=== PATIENT | male | born 1955 | race Caucasian/White ===

== ENCOUNTER 2016-11-10 22:50 | Inpatient (IN) | payer OTHER ==
[2016-11-10] MEDS ORDERED: LIDOCAINE 2% UROJECT 10 ML ONE (23:49)
[2016-11-11 00:24] LABS: URINE BILIRUBIN NEGATIVE (NEGATIVE); URINE BLOOD NEGATIVE (NEGATIVE); URINE GLUCOSE (UA) NEGATIVE (NEGATIVE); URINE LEUKOCYTE ESTERASE NEGATIVE (NEGATIVE); URINE NITRITE NEGATIVE (NEGATIVE); URINE PROTEIN NEGATIVE (NEGATIVE); URINE UROBILINOGEN NORMAL (0-1 mg/dl)
[2016-11-11 00:25] LABS: URINE APPEARANCE CLEAR; URINE COLOR YELLOW
[2016-11-11] MEDS ORDERED: OXYCODONE/ACETAMINOPHEN 5/325 MG TABLET ONE (00:53)
[2016-11-11 04:30] VITALS: BMI 23.9
[2016-11-11] MEDS ORDERED: BISACODYL 10 MG SUP PR PRN (04:47)
[2016-11-11] MEDS ORDERED: MENTHOL/CETYLPYRD 1 EACH LOZENGE PO PRN (04:47)
[2016-11-11] MEDS ORDERED: BLISTEX LIPSTICK 1 EACH TP PRN (04:47)
[2016-11-11] MEDS ORDERED: BISACODYL 5 MG TABLET.EC PO PRN (04:47)
[2016-11-11] MEDS ORDERED: SODIUM CHLORIDE 0.9% 100 ML IV PRN (04:47)
[2016-11-11] MEDS ORDERED: MAGNESIUM HYDROXIDE 30 ML UDCUP PO PRN (04:47)
[2016-11-11] MEDS ORDERED: DIPHENHYDRAMINE HCL 25 MG CAPSULE PO PRN (05:33)
[2016-11-11] MEDS ORDERED: ALBUTEROL NEB 2.5 MG/3 ML VIAL.NEB NEB PRN (05:43)
[2016-11-11] MEDS: OXYCODONE/ACETAMINOPHEN 5/325 MG TABLET PO PRN ×4 (06:25→20:38)
--- NOTE | 2016-11-11 06:29 | RAD ---
EXAMINATION:HIP - LEFT 2 VW + AP PELVIS INDICATION:Left hip pain. COMPARISON: Prior exam dated 12/25/2011. TECHNIQUE:An AP pelvis and 2 views of the hip were obtained. A left total hip arthroplasty is noted. The femoral component is well seated within the acetabular component. There is increased lucency adjacent to the acetabular component. This is more pronounced in comparison to the prior examination. The femoral component appears well-seated. Heterotopic ossification adjacent to the trochanters are again noted and similar to the prior exam. Right total hip arthroplasty is similar to the prior study. No acute pelvic fracture is identified. IMPRESSION: Evidence of loosening of the acetabular component left total hip arthroplasty. No acute fracture or dislocation is identified.
--- NOTE | 2016-11-11 06:37 | CT ---
Examination: Noncontrast CT scan of the lumbar spine. Clinical indication: Sudden onset of large and weakness. Left hip pain. Comparisons: Radiographs dated 01/23/2008. Technique: A [employer]orap [address] scanner was utilized. Axial images were acquired from the T12 vertebra to S2. Stacked 3 mm axial images were reviewed. Sagittal and coronal reconstructed images were acquired and reviewed as well. Additional 3 mm reconstructed images were acquired with additional post processing angled to the plane of the intervertebral discs of the lumbar spine. Findings: Sagittal reconstructed images reveal: There is normal alignment of the lumbar vertebral bodies. The vertebral body heights are maintained. There is intervertebral disc space narrowing greatest at L4-5 and L5-S1. Disc osteophyte formation is seen at these segments. Mild/moderate facet arthropathy involves the lower lumbar segments. After chronic plaquing the abdominal aorta is noted. Axial images reveal: At T12-L1: Minimal disc bulge with no secondary stenosis. At L1-L2: There is a minimal disc bulge with mild facet arthropathy. No significant stenosis. At L2-L3: There is a mild disc bulge at this segment with facet and ligament flavum hypertrophy contributing to mild central canal narrowing. There is no significant neural encroachment. At L3-L4: There is a diffuse disc bulge at this segment with facet and ligament flavum hypertrophy and mild central canal narrowing. No neural encroachment. At L4-L5: There is a broad-based disc osteophyte at this segment with facet and ligament flavum hypertrophy contributing to moderate central stenosis. There is mild to moderate bilateral neural encroachment. At L5-S1: There is a diffuse disc osteophyte. At this segment with moderate facet arthropathy. This causes severe left and moderate to severe right neural encroachment. There is abutment of the origin the S1 nerve root at this segment as well. Paraspinous soft tissues: Atherosclerotic plaquing of the aorta and iliac vessels are noted.. Minimal right hydroureter is noted with no evidence of perinephric stranding. IMPRESSION: Multilevel degenerative disc disease coupled with facet and ligament flavum hypertrophy contributing to the followin. Severe left and moderate to severe right neural encroachment at L5-S1. 2. Mild central stenosis and mild to moderate bilateral neural encroachment at L4-5. 3. Mild central stenosis at L2-3 and L3-4 with no neural encroachment. 4. Prominent proximal right hydroureter. No radha changes of pyelonephritis or hydronephrosis. Findings were communicated by [facility] to the emergency department at: 12:02 AM 11/11/2016
[2016-11-11] MEDS: FLUTICASONE PROP 220 MCG 120 PUFF/INH INHALER IH SCH ×2 (06:58→17:43)
[2016-11-11 07:40] LABS: ABSOLUTE NEUTROPHIL COUNT 3.3 K/mm3 (1.8-7.7); BASO % 0.5 % (0.2-1.0); EOS # 0.1 (0.0-0.5); EOS % 1.6 % (0.9-2.9); HEMATOCRIT 40.1 % (32.0-52.0); HEMOGLOBIN 13.3 gm/l (14.0-18.0); IMM NEUT% 0.7 % (0-1); LYMPH # 1.6 (1.0-4.8); LYMPH % 28.7 % (15-45); MEAN CELL VOLUME 93.3 fl (80.0-94.0); MEAN CORPUSCULAR HEMOGLOBIN 30.9 pg (27.0-31.0); MEAN CORPUSCULAR HGB CONC 33.2 g/dl (33.0-37.0); MEAN PLATELET VOLUME 13.2 fl (7.4-10.4); MONO # 0.5 (0.0-0.8); MONO % 8.2 % (4-12); NEUT % 60.3 % (43-75); RED CELL DISTRIBUTION WIDTH 13.8 % (11.5-14.5)
[2016-11-11 07:48] LABS: ALB/GLOB RATIO 1.4 (>1.0); ALBUMIN 3.8 gm/dL (3.5-5.7); CALCIUM 9.1 mg/dL (8.6-10.3); PHENYTOIN (DILANTIN) 31.7 ug/ml (10-20)
[2016-11-11] MEDS: POLYETHYLENE GLYCOL 3350 17 G POWD.SUSP PO SCH (08:47)
[2016-11-11] MEDS: ASPIRIN (UNCOATED) 325 MG TABLET PO SCH (08:48)
[2016-11-11] MEDS: FOLIC ACID 1 MG TABLET PO SCH (08:48)
[2016-11-11] MEDS: CYCLOBENZAPRINE HCL 10 MG TABLET PO SCH ×2 (08:49→20:38)
[2016-11-11] MEDS: AMLODIPINE BESYLATE 5 MG TABLET PO SCH (08:49)
[2016-11-11] MEDS: PHENOBARBITAL 32.4 MG PO SCH ×2 (08:49→20:38)
[2016-11-11] MEDS: DOCUSATE SODIUM 100 MG CAPSULE PO SCH ×2 (08:49→20:38)
[2016-11-11 08:59] LABS: PLATELET COUNT 95 K/mm3 (130-400)
[2016-11-11] MEDS ORDERED: ENOXAPARIN SODIUM 40 MG/0.4 ML SYRINGE SUB-Q SCH (09:00)
[2016-11-11] MEDS ORDERED: PHENYTOIN SODIUM 100 MG PO SCH (09:00)
--- NOTE | 2016-11-11 14:36 | HP ---
NIMISHA BORJA [id number] DATE OF ADMISSION: 11/11/2016 CHIEF COMPLAINT: Fall, with inability to ambulate and potential need for placement. HISTORY OF PRESENT ILLNESS: The patient is a 61-year-old male. When asked about when his problems started, he reports his problems started in 1995. More recently he has had multiple falls and ER visits. He has had a number of hip surgeries and has had recurrent dislocation and exostosis formation. He has been seen at [facility], but [facility] does not have any further treatment that can be offered to him. He presented to the ER complaining of left hip and lower back pain after a fall at 8:00 P.M. on 11/10/2016 after his knees gave-out. In the emergency department he was given Percocet, but he was unable or unwilling to walk, and so the Hospitalist Service was requested to admit to facilitate for evaluation and potential placement. He reports his back "let go" and he fell on his left hip. He denies loss of consciousness. PAST MEDICAL HISTORY: 1. Review of old charts indicates he has had multiple falls, with a previous request for a wheelchair from Dr. Epstein. 2. He has had seizures since at least 1977 according to his report. 3. He has had a head injury dating to two concussions in 1968, and seizures that developed in 1977. 4. He has had a diagnosis of personality disorder. 5. Previously failed chronic pain treatment. 6. History of drug abuse. 7. History of asthma. 8. Chronic neck, back and hip pains. 9. Previous history of avascular necrosis of bilateral hips. 10. History of hypertension. 11. 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 12. Previous history of urinary retention, and he actually received a Gifford here in the ER today. 13. He has had a history of chest pains and had a nuclear stress test in October of 2016, with a normal ejection fraction. 14. The patient had an ankle fracture in October of 2016. PAST SURGICAL HISTORY: Includes: 1. Cholecystectomy. 2. Foot surgery, with what sounds like a neuroma removal at two times. 3. He has had cervical fusion and reports having numerous bilateral hip surgeries. ALLERGIES: Listed as morphine, penicillin and soma. MEDICATIONS: He takes: 1. Amlodipine 10 mg daily. 2. Aspirin 325 mg daily. 3. Calcium with vitamin D-3 by mouth twice a day. 4. Cyclobenzaprine 20 mg by mouth twice a day. 5. Diphenhydramine 25 mg by mouth every four hours as needed allergies. 6. Flovent 220 two puffs inhaled every 12 hours. 7. Folic acid 2 mg by mouth daily. 8. Phenobarbital 129 mg by mouth twice a day. 9. Phenytoin 200 mg by mouth twice a day, taken from Dr. Epstein's outpatient record. SOCIAL HISTORY: He last worked 20 years ago. 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 He is . He has two kids and five grandkids. He smokes marijuana. Occasional cigar. Occasional alcohol. He lives at [place] in a [facility], no others there. FAMILY HISTORY: Father at age 87. Mom at age 85. REVIEW OF SYSTEMS: HEENT - eyes, he reports he needs glasses and has cataracts. Ears are okay, although he has tinnitus on the right and reports that his ears were frequently lanced as a child. Nose has been okay, although it has been fractured four times. Mouth is okay. He has dentures. Neck - neck is fused, and he has problems because of this. He has headaches. Pulmonary - his breathing, he states his asthma is okay, he uses nebulizers. Heart - has been okay. GI - stomach is okay. No vomiting and no diarrhea. - he has had urinary retention and he got a catheter in his bladder, placed in the ER. Outside records indicate a history of atonic bladder. Skin - no skin complaints. Musculoskeletal - he reports a history of abdominal muscle tear associated with a fall of 32 feet. He reports his last seizure was last week. He uses a four-wheeled walker and has a two-wheeled walker as well. He has chronic hip pain. Neurologic - he denies history of stroke. PHYSICAL EXAMINATION: GENERAL: Nontoxic male lying in bed, questionable historian. VITAL SIGNS: Blood pressure 117/79. Pulse is 60. Respirations 18. Saturation 95% on room air. HEENT: Head is normocephalic, atraumatic. Eyes are unremarkable. Ears, cerumen noted. Nose is unremarkable. Edentulous mouth. NECK: Without significant crepitance noted. LUNGS: Clear to auscultation. HEART: Regular rate and rhythm, without murmur. ABDOMEN: Soft, nontender and nondistended. Bowel sounds are normal. No hepatosplenomegaly. Gifford is in. GENITOURINARY: Exam is otherwise grossly unremarkable. EXTREMITIES: Legs, no cyanosis, clubbing or edema. Arms, grossly unremarkable. NEUROLOGIC: Patient's cranial nerves are intact. Speech is clear. He is lying in bed. Fair historian. LABS: Urinalysis is normal. IMAGING: None. ASSESSMENT/PLAN: 1. Inability to walk and care for self. Plan social work, PT and OT consult, and appreciate their input regarding consideration for placement or other assistance. 2. History of seizure disorder. Will check labs, including a phenytoin level. 3. History of heterotopic bone formation. Appreciate PT and OT evaluation, but ER reports that [facility] was contacted and that they do not have any treatments to offer him. 4. History of ankle fracture, not otherwise addressed. 5. History of asthma. Will continue on inhalers. 6. Hypertension. Will continue medications. 7. Venous thrombosis prophylaxis. Anticipate use of Lovenox. cc: Dr. Christoph Epstein [facility]
[2016-11-11] MEDS ORDERED: CELECOXIB 100 MG CAPSULE PO SCH (15:00)
[2016-11-11] MEDS ORDERED: CELECOXIB 200 MG CAPSULE ONE (15:04)
[2016-11-11] MEDS: CELECOXIB 200 MG CAPSULE PO SCH (15:38)
[2016-11-12] MEDS: OXYCODONE/ACETAMINOPHEN 5/325 MG TABLET PO PRN ×5 (02:42→23:33)
[2016-11-12] MEDS: FLUTICASONE PROP 220 MCG 120 PUFF/INH INHALER IH SCH ×2 (05:23→17:44)
[2016-11-12] MEDS: PHENOBARBITAL 32.4 MG PO SCH ×2 (08:46→21:03)
[2016-11-12] MEDS: POLYETHYLENE GLYCOL 3350 17 G POWD.SUSP PO SCH (08:46)
[2016-11-12] MEDS: DOCUSATE SODIUM 100 MG CAPSULE PO SCH ×2 (08:47→21:03)
[2016-11-12] MEDS: AMLODIPINE BESYLATE 5 MG TABLET PO SCH (08:47)
[2016-11-12] MEDS: ASPIRIN (UNCOATED) 325 MG TABLET PO SCH (08:47)
[2016-11-12] MEDS: FOLIC ACID 1 MG TABLET PO SCH (08:47)
[2016-11-12] MEDS: CYCLOBENZAPRINE HCL 10 MG TABLET PO SCH ×2 (08:47→21:03)
[2016-11-12] MEDS: CELECOXIB 200 MG CAPSULE PO SCH (08:49)
--- NOTE | 2016-11-12 11:06 | PDOC43 ---
- Subjective Chief Complaint: Falls Patient reports ongoing difficulty with L hip pain, difficulty raising L leg since falling on L leg. Xray showed the heterotopic bone formation, but also suggested possible loosening of acetabular component. Pt focused on the heterotopic bone. Pt's brother visiting. They are both upset about several things today. They report that they have requested testing for cobalt due to seeing ads on TV and that they feel he could be missing out on joining the class action suit. They are upset that Dr Epstein has not shown them the Xrays, and they indicate that Dr Epstein has not pursued their concerns. Pt has been to [facility] and [facility], but doesn't wish to go there. - Objective Vital Signs Temperature 98.3 F 11/12/16 07:37 Pulse Rate 87 11/12/16 07:37 Respiratory Rate 15 11/12/16 07:37 Blood Pressure 117/76 11/12/16 07:37 O2 Saturation by Pulse Oximetry 95 11/12/16 07:37 Oxygen Delivery Method Room Air Oxygen Flow Rate 0 Vital Signs Last 12 Hours Temp Pulse Resp BP Pulse Ox 11/12/16 07:37 98.3 F 87 15 117/76 95 11/12/16 02:00 98.3 F 91 20 110/85 100 Intake and Output 11/10/16 11/11/16 11/12/16 23:59 23:59 23:59 Intake Total 1350 650 Output Total 1050 450 Balance 300 200 General: Other (pt reports unable to use left leg.) HEENT: Atraumatic Lungs: Clear to Auscultation Bilaterally Cardiovascular: Regular Rate and Rhythm Abdomen: Soft, Hypoactive Bowel Sounds, Other Extremities: No Cyanosis, No Edema Skin: Normal Color Neurological: Normal Speech, Other (Patient seems more alert, more awake this am.) Laboratory 11/11/16 07:00 11/11/16 07:00 11/12/16 05:30 Phenytoin 22.8 H Current Medications: Current meds reviewed in EMR. Active Medications Albuterol Sulfate (Ventolin Inhalation Solution (Dose)) 2.5 mg NEB Q4H PRN PRN Reason: Wheezing Amlodipine Besylate (Norvasc) 10 mg PO DAILY [facility] Last Admin: 11/12/16 08:47 Dose: 10 mg Aspirin (Aspirin (Uncoated)) 325 mg PO DAILY [facility] Last Admin: 11/12/16 08:47 Dose: 325 mg Benzocaine/Menthol (Cepacol) 1 each PO PRN PRN PRN Reason: Sore Throat Bisacodyl (Dulcolax) 10 mg [place] DAILY PRN PRN Reason: Constipation Bisacodyl (Dulcolax) 5 mg PO DAILY PRN PRN Reason: Constipation Celecoxib (Celebrex) 200 mg PO DAILY [facility] Last Admin: 11/12/16 08:49 Dose: Not Given Cyclobenzaprine HCl (Flexeril) 20 mg PO BID [facility] Last Admin: 11/12/16 08:47 Dose: 20 mg Diphenhydramine HCl (Benadryl) 25 mg PO Q4H PRN PRN Reason: allergy symptoms Docusate Sodium (Colace) 100 mg PO BID [facility] Last Admin: 11/12/16 08:47 Dose: 100 mg Enoxaparin Sodium (Lovenox) 40 mg SUB-Q Q24H [facility] Last Admin: 11/11/16 08:51 Dose: 40 mg Fluticasone Propionate (Flovent Hfa 220 Mcg) 2 puff IH Q12H [facility] Last Admin: 11/12/16 05:23 Dose: 2 puffs Folic Acid (Folic Acid) 2 mg PO DAILY [facility] Last Admin: 11/12/16 08:47 Dose: 2 mg Sodium Chloride (Sodium Chloride 0.9%) 100 mls @ 25 mls/hr IV PRN PRN PRN Reason: Flush Magnesium Hydroxide (Milk Of Magnesia) 30 ml PO DAILY PRN PRN Reason: Constipation Oxycodone/Acetaminophen (Percocet 5/325) 0.5 - 1 tab PO Q4H PRN PRN Reason: Pain Last Admin: 11/12/16 07:12 Dose: 1 tab Petrolatum/Paraffin/Mineral Oil (Blistex) 1 each TP PRN PRN PRN Reason: Dry and/or chapped lips Phenobarbital (Phenobarbital (1/2 Grain)) 129.6 mg PO BID [facility] Last Admin: 11/12/16 08:46 Dose: 129.6 mg Phenytoin Sodium (Dilantin) 200 mg PO BID [facility] Last Admin: 11/11/16 10:11 Dose: Not Given Polyethylene Glycol/Electrolytes (Miralax) 17 g PO DAILY [facility] Last Admin: 11/12/16 08:46 Dose: 17 g Sodium Chloride (Normal Saline 10ml Flush) 10 - 50 ml IV PRN PRN PRN Reason: IV Flush Sodium Chloride (Normal Saline 10ml Flush) 10 ml IV Q8HR [facility] Last Admin: 11/12/16 08:49 Dose: Not Given - Problems: Assessment/Plan (1) Fall Qualifiers: Encounter type: initial encounter Qualifier Code: (W19.XXXA) Unspecified fall, initial encounter Status: Acute Assessment/Plan: Suspect related to dilantin toxicity. Planning on PT/OT eval. Consider for return home vs SNF placement, but SNF seems more likely. Pt with possible loosening - Dr Pruitt rec'd outpt follow up (2) HTN (hypertension) Qualifiers: Hypertension type: essential hypertension Qualifier Code: (I10) Essential (primary) hypertension Status: Chronic Assessment/Plan: Appears stable (3) Hip pain, bilateral Status: Chronic Assessment/Plan: Appreciate ortho input, anticipate outpt follow up. Xray printed out, given to patient at his request. Pt reports increased L hip pain attributed to fall at home. Question of acetabular loosening. (4) Seizure disorder Status: Chronic Assessment/Plan: On dilantin, plan revise dosing due to toxicity. VTE Prophylaxis: enoxoparin Disposition: determining SNF vs home. Appreciate PT/OT input - they report not safe, would recommend SNF
[2016-11-13] MEDS: OXYCODONE/ACETAMINOPHEN 5/325 MG TABLET PO PRN ×2 (06:22→13:39)
[2016-11-13] MEDS: FLUTICASONE PROP 220 MCG 120 PUFF/INH INHALER IH SCH (06:24)
[2016-11-13 07:47] VITALS: BP 120/86
--- NOTE | 2016-11-13 08:52 | PDOC43 ---
- Subjective Chief Complaint: Falls Patient reports doing ok, but reports frustrated about inability to use L leg. Gifford still in. - Objective Vital Signs Temperature 97.6 F 11/13/16 07:46 Pulse Rate 99 11/13/16 07:46 Respiratory Rate 20 11/13/16 07:46 Blood Pressure 120/86 11/13/16 07:46 O2 Saturation by Pulse Oximetry 94 11/13/16 07:46 Oxygen Delivery Method Room Air Oxygen Flow Rate 0 Vital Signs Last 12 Hours Temp Pulse Resp BP Pulse Ox 11/13/16 07:46 97.6 F 99 20 120/86 94 11/13/16 02:07 98.2 F 100 18 138/112 97 11/13/16 01:00 18 Intake and Output 11/11/16 11/12/16 11/13/16 23:59 23:59 23:59 Intake Total 1350 1390 500 Output Total 1050 1050 650 Balance 300 340 -150 Intake & Output 11/12/16 11/13/16 11/13/16 23:59 07:59 15:59 Intake Total 740 500 Output Total 600 650 Balance 140 -150 Weight 65 kg Intake: PO Intake 740 500 Output: Gifford Output 600 650 General: Alert, Cooperative, Mild Distress (concerned about getting medications at SNF) Lungs: Clear to Auscultation Bilaterally Cardiovascular: Regular Rate and Rhythm Abdomen: Soft, Normal Bowel Sounds, Non-Distended Extremities: Other (difficulty raising or moving L leg), No Edema Neurological: Other (sl atypical affect, focused on medications and illnesses) Laboratory 11/11/16 07:00 11/11/16 07:00 Current Medications: Current meds reviewed in EMR. Active Medications Albuterol Sulfate (Ventolin Inhalation Solution (Dose)) 2.5 mg NEB Q4H PRN PRN Reason: Wheezing Last Admin: 11/12/16 19:54 Dose: 2.5 mg Amlodipine Besylate (Norvasc) 10 mg PO DAILY [facility] Last Admin: 11/12/16 08:47 Dose: 10 mg Aspirin (Aspirin (Uncoated)) 325 mg PO DAILY [facility] Last Admin: 11/12/16 08:47 Dose: 325 mg Benzocaine/Menthol (Cepacol) 1 each PO PRN PRN PRN Reason: Sore Throat Bisacodyl (Dulcolax) 10 mg [place] DAILY PRN PRN Reason: Constipation Bisacodyl (Dulcolax) 5 mg PO DAILY PRN PRN Reason: Constipation Celecoxib (Celebrex) 200 mg PO DAILY [facility] Last Admin: 11/12/16 08:49 Dose: Not Given Cyclobenzaprine HCl (Flexeril) 20 mg PO BID [facility] Last Admin: 11/12/16 21:03 Dose: 20 mg Diphenhydramine HCl (Benadryl) 25 mg PO Q4H PRN PRN Reason: allergy symptoms Docusate Sodium (Colace) 100 mg PO BID [facility] Last Admin: 11/12/16 21:03 Dose: 100 mg Enoxaparin Sodium (Lovenox) 40 mg SUB-Q Q24H [facility] Last Admin: 11/11/16 08:51 Dose: 40 mg Fluticasone Propionate (Flovent Hfa 220 Mcg) 2 puff IH Q12H [facility] Last Admin: 11/13/16 06:24 Dose: 2 puffs Folic Acid (Folic Acid) 2 mg PO DAILY [facility] Last Admin: 11/12/16 08:47 Dose: 2 mg Sodium Chloride (Sodium Chloride 0.9%) 100 mls @ 25 mls/hr IV PRN PRN PRN Reason: Flush Magnesium Hydroxide (Milk Of Magnesia) 30 ml PO DAILY PRN PRN Reason: Constipation Oxycodone/Acetaminophen (Percocet 5/325) 0.5 - 1 tab PO Q4H PRN PRN Reason: Pain Last Admin: 11/13/16 06:22 Dose: 1 tab Petrolatum/Paraffin/Mineral Oil (Blistex) 1 each TP PRN PRN PRN Reason: Dry and/or chapped lips Phenobarbital (Phenobarbital (1/2 Grain)) 129.6 mg PO BID [facility] Last Admin: 11/12/16 21:03 Dose: 129.6 mg Phenytoin Sodium (Dilantin) 200 mg PO BID [facility] Last Admin: 11/11/16 10:11 Dose: Not Given Polyethylene Glycol/Electrolytes (Miralax) 17 g PO DAILY [facility] Last Admin: 11/12/16 08:46 Dose: 17 g Sodium Chloride (Normal Saline 10ml Flush) 10 - 50 ml IV PRN PRN PRN Reason: IV Flush Sodium Chloride (Normal Saline 10ml Flush) 10 ml IV Q8HR [facility] Last Admin: 11/13/16 02:11 Dose: Not Given - Problems: Assessment/Plan (1) Fall Qualifiers: Encounter type: initial encounter Qualifier Code: (W19.XXXA) Unspecified fall, initial encounter Status: Acute Assessment/Plan: Suspect related to dilantin toxicity. Planning on PT/OT eval. Consider for SNF placement Pt with possible loosening - asked [facility] to see to facilitate follow up. (2) HTN (hypertension) Qualifiers: Hypertension type: essential hypertension Qualifier Code: (I10) Essential (primary) hypertension Status: Chronic Assessment/Plan: Appears stable (3) Hip pain, bilateral Status: Chronic Assessment/Plan: Bilat pain, but seems left has worsened since fall. Appreciate ortho input, anticipate outpt follow up. Xray printed out, given to patient at his request. Pt reports increased L hip pain attributed to last fall at home. Question of acetabular loosening - ortho follow up appreciated. Pt with multiple prior procedures, revisions, and even radiation for heterotopic bone formation at [facility] Appreciate ortho care (4) Seizure disorder Status: Chronic Assessment/Plan: On dilantin, Revised dosing due to toxicity. Seems clearer after dose revised. VTE Prophylaxis: enoxoparin Disposition: recommend SNF, may go later today
[2016-11-13] MEDS: CELECOXIB 200 MG CAPSULE PO SCH (09:05)
[2016-11-13] MEDS: POLYETHYLENE GLYCOL 3350 17 G POWD.SUSP PO SCH (09:10)
[2016-11-13] MEDS: CYCLOBENZAPRINE HCL 10 MG TABLET PO SCH (09:11)
[2016-11-13] MEDS: FOLIC ACID 1 MG TABLET PO SCH (09:12)
[2016-11-13] MEDS: AMLODIPINE BESYLATE 5 MG TABLET PO SCH (09:12)
[2016-11-13] MEDS: ASPIRIN (UNCOATED) 325 MG TABLET PO SCH (09:12)
[2016-11-13] MEDS: DOCUSATE SODIUM 100 MG CAPSULE PO SCH (09:12)
[2016-11-13] MEDS: PHENOBARBITAL 32.4 MG PO SCH (09:13)
[2016-11-13] MEDS ORDERED: PHENYTOIN SODIUM 100 MG PO SCH ×2 (09:45→20:00)
--- NOTE | 2016-11-13 15:10 | DS ---
BERENICE BORJA [id number] DATE OF ADMISSION: November 11, 2016 DATE OF DISCHARGE: November 13, 2016 DISCHARGE DIAGNOSES: Are: 1. Fall with inability to ambulate. 2. Concern for a loosened prosthesis left hip. 3. Dilantin toxicity. 4. Seizure disorder. 5. History of head injury. 6. History of drug abuse and failed chronic pain treatment. 7. Previous history of avascular necrosis of hips. 8. Heterotopic bone formation in hips. 9. Urinary retention with Gifford placement during this hospitalization. 10. Ankle fracture, October,. 11. L5/S1 neural encroachment seen on CT. 12. Patient concerned for cobalt toxicity. REASON FOR ADMISSION: The patient is a 61-year-old male who is a poor historian. He has had multiple falls and emergency room visits recently and has also had a long history of hip surgeries and revisions. Last seen at [facility] and had even undergone some type of radiation for heterotopic bone formation. He presented to the emergency room regarding left hip and lower back pain after a fall at 8:00 p.m. on November 10, 2016 after his knees gave out. In the emergency room he was given Percocet but was unable to walk, so hospitalist service was requested to admit to facilitate evaluation and consideration for placement. He denied loss of consciousness. His admission labs showed a white blood cell count of 5.5, hemoglobin 13.3, platelet count 95, sodium 133, potassium 4.3, chloride 97, CO2 27, BUN 10, creatinine 0.7, glucose 73, AST 15, ALT 7, alkaline phosphatase 122, TSH 0.63, albumin 3.8, globulin 2.8. urinalysis was unremarkable. Dilantin level was 31.7 on November 11, 2016 and a followup one on November 12, 2016 was 22.8. Imaging performed: Hip and pelvis x-ray showed evidence of loosening of the acetabular component of the left total hip arthroplasty but no acute fracture or dislocation identified. The heterotopic bone formation was also noted adjacent to the trochanter, similar to prior exam. No pelvic fractures seen. Lumbar spine CT had shown severe left and moderate to severe right neural encroachment L5/S1, mild central stenosis and mild to moderate bilateral neural encroachment at L4/5, mild central stenosis at L2/3 and L3/4 with no neural encroachment, prominent proximal right hydroureter. No radha changes of pyelonephritis or hydronephrosis. HOSPITAL COURSE: The patient had his dilantin held and received Celebrex and Percocet while here. He had physical therapy and occupational therapy evaluations and while he had some good improvement in mentation with holding his dilantin, he continued to have difficulty with standing, walking or ambulating and placement was felt to be best for him. Orthopedic consult was ordered and although will be following as an outpatient, the consultation was ordered to facilitate any other tests or treatment that could be initiated prior to being seen in the office. DISPOSITION: Patient is anticipated to be discharged to [facility] today. DISCHARGE MEDICATIONS: Will be: 1. Albuterol one to two puffs inhaled every four hours as needed. 2. Amlodipine 10 mg orally daily. 3. Aspirin 325 mg orally daily. 4. Calcium with D3 orally twice daily. 5. Celebrex 200 mg orally daily. 6. Cyclobenzaprine 20 mg orally twice daily as needed. 7. Diphenhydramine 25 mg orally every four hours as needed. 8. Fluticasone 220 two puffs inhaled every 12 hours. 9. Folic acid 2 mg orally daily. 10. Percocet 5/325 one half to one tablet orally every four hours as needed. 11. Phenobarbital 129.6 mg orally twice daily. 12. Phenytoin 100 mg in the morning, 200 mg at night. DIET: Will be as tolerated. FOLLOWUP: Will be with Dr. Miner or Dr. Gaytan regarding concern for loosened prosthesis. Cc: Christoph Epstein M.D. [facility] Santo Gaytan M.D. Miguel Miner M.D.
== END 2016-11-13 14:57 | disposition home or self-care (01) | DRG 561 ==
LOC: ED 22:50 → MS 11-11 03:01
PROVIDERS: ADMIT Family Medicine; ATTEND Family Medicine
DX: T84.021A Dislocation of internal left hip prosthesis, initial encounter (principal); G40.909 Epilepsy, unspecified, not intractable, without status epilepticus; M89.9 Disorder of bone, unspecified; J45.909 Unspecified asthma, uncomplicated; I10 Essential (primary) hypertension; W19.XXXA Unspecified fall, initial encounter; Y92.009 Unspecified place in unspecified non-institutional (private) residence as the place of occurrence of the external cause; T42.0X5A Adverse effect of hydantoin derivatives, initial encounter; R33.9 Retention of urine, unspecified; S82.899A Other fracture of unspecified lower leg, initial encounter for closed fracture